=== PATIENT | female | born 1955 | race Caucasian/White ===

== ENCOUNTER 2018-08-24 05:30 | Inpatient (IN) ==
[2018-08-24] MEDS ORDERED: ZOFRAN IV ONE (05:58)
[2018-08-24] MEDS ORDERED: NS 1,000 ML IV ONE ×3 (05:58→08:35)
--- NOTE | 2018-08-24 06:26 | PROVIDER DOCUMENTATION ---
HPI-General Adult - General Chief Complaint: Syncope Stated Complaint: diarrhea Time Seen by Provider: 08/24/18 05:46 Source: patient, EMS Allergies/Adverse Reactions: Patient Allergies Allergy/AdvReac Type Severity Reaction Status Date / Time adhesive tape AdvReac HIVES Verified 07/03/18 13:05 Beta-Blockers AdvReac Unknown Verified 07/03/18 13:05 (Beta-Adrenergic Bloc duloxetine [From Cymbalta] AdvReac HIVES Verified 07/03/18 13:05 iothalamate meglumine AdvReac FLUSHING Verified 07/03/18 13:05 [From Vascoray] iothalamate sodium AdvReac FLUSHING Verified 07/03/18 13:05 [From Vascoray] morphine AdvReac Unknown Verified 07/03/18 13:05 Home Medications: Home Medication List Medication Instructions Recorded Confirmed Last Taken Type Alprazolam [Xanax] 0.5 mg PO DAILY PRN 08/24/18 08/24/18 Unknown History Celecoxib [Celebrex] 200 mg PO BID 08/24/18 08/24/18 08/23/18 History Cyanocobalamin 1,000 mcg IM DIRECTED 08/24/18 08/24/18 Unknown History Desvenlafaxine [Desvenlafaxine ER] 100 mg PO DAILY 08/24/18 08/24/18 08/23/18 History Dorzolamide HCl 1 drp BOTH EYES BID 08/24/18 08/24/18 08/23/18 History Folic Acid 1 mg PO DAILY 08/24/18 08/24/18 08/23/18 History Losartan [Cozaar] 50 mg PO DAILY 08/24/18 08/24/18 08/23/18 History Metformin HCl 1,000 mg PO BID 08/24/18 08/24/18 08/23/18 History Oxcarbazepine [Trileptal] 600 mg PO BID 08/24/18 08/24/18 08/23/18 History Pitavastatin Calcium [Livalo] 2 mg PO DAILY 08/24/18 08/24/18 08/23/18 History Quetiapine [Seroquel] 200 mg PO QHS 08/24/18 08/24/18 08/23/18 History - History of Present Illness -Gen Adult Nature of Presenting Problems: Pt presents s/p syncope, pt has had diarrhea over the last couple of days, tonight felt weak and tired, pt got up to go to the bathroom and syncopized several times, pt was found down on the ground by her , had stool on the ground/lower extremity, pt unsure if she hit her head, pt denies f/c, resendiz, cp, sob, cough, ap, pt reports some dry heaving, pt is lying in bed in no acute distress. Location of Pain/Injury: reports: none Pain Radiation: reports: no radiation Quality of Pain: reports: none Severity: reports: mild Onset/Duration: reports: 2 days ago Timing: reports: still present Context/Activities at Onset: reports: none Modifying Factors: improves with: nothing Associated Symptoms: reports: diarrhea, weakness Similar Symptoms Previously?: No Recently seen or treated by another doctor?: No Review of Systems - Adult - REVIEW OF SYSTEMS - ADULT Constitutional: reports: no symptoms reported Eyes: reports: no symptoms reported Ears, Nose, Mouth & Throat: reports: no symptoms reported Cardiovascular: reports: no symptoms reported Respiratory: reports: no symptoms reported Gastrointestinal: reports: see HPI Genitourinary: reports: no symptoms reported Musculoskeletal: reports: no symptoms reported Integumentary: reports: no symptoms reported Neurological: reports: see HPI Psychiatric: reports: no symptoms reported Endocrine: reports: no symptoms reported Hematologic/Lymphatic: reports: no symptoms reported Allergic/Immunologic: reports: no symptoms reported All Other Systems: Reviewed and Negative Past History - Adult - PAST MEDICAL HISTORY-ADULT Review of Records: reports: Old Records Reviewed, Nursing Assessment Review, Medications Reviewed, Social history reviewed & non-contributory. Major Childhood Illnesses: reports: denies history Gastrointestinal: reports: diverticulosis - PRIOR SURGERIES/PROCEDURES Surgical/Procedure History: reports: none - IMMUNIZATION STATUS Childhood Immunizations: See Nurse Assessment Flu Vaccine: See Nurse Assessment - FAMILY HISTORY Family History: reviewed, not pertinent Physical Exam-General - PHYSICAL EXAM-ADULT Initial Vital Signs Reviewed: Yes - CONSTITUTIONAL General Appearance: appears well, no apparent distress - EYES Eyes: PERRL/EOMI - HEAD, EARS, NOSE, MOUTH & THROAT HENMT: normocephalic/atraumatic - NECK Neck: full range of motion, supple, normal inspection - RESPIRATORY Respiratory: no respiratory distress, no accessory muscle use - CARDIOVASCULAR Cardiovascular: regular rate, rhythm - GASTROINTESTINAL (ABDOMEN) Abdominal Exam: normal bowel sounds, non tender, soft - LYMPHATIC Lymphatic: no adenopathy - MUSCULOSKELETAL Back Exam: normal inspection Extremity: normal range of motion - SKIN Integumentary: normal color - 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 - PSYCHIATRIC Psych/Mental Status: normal mood/affect Progress - PLAN OF CARE/RESULTS Progress/Plan/Lab Results: Vital Signs - 8 hr 08/24/18 06:03 Temperature 98.3 F Pulse Rate 83 Respiratory Rate 14 Blood Pressure 130/76 O2 Sat by Pulse Oximetry 93 L Laboratory Results - last 24 hr 08/24/18 05:55 POC Glucose 168 H Orders Category Date Time Status CT HEAD W/O CONTRAST [CT] Stat Exams 08/24/18 05:58 Ordered cxr [CHEST-1 VIEW] [RAD] Stat Exams 08/24/18 05:57 Ordered CBC WITH ELECTRONIC DIFF [HEME] Stat Lab 08/24/18 06:00 Ordered COMPREHENSIVE METABOLIC PANEL [CHEM] Stat Lab 08/24/18 06:00 Ordered LACTATE, PLASMA [CHEM] Stat Lab 08/24/18 06:00 Ordered LIPASE [CHEM] Stat Lab 08/24/18 06:00 Ordered PRO B-NATRIURETIC PEPTIDE Stat Lab 08/24/18 06:00 Ordered TROPONIN T Stat Lab 08/24/18 06:00 Ordered TSH Stat Lab 08/24/18 06:00 Ordered UA [URINALYSIS] [URINALYSIS] Stat Lab 08/24/18 05:55 Uncollected 0.9% Sodium Chloride Inj [Ns] 1,000 ml Med 08/24/18 05:58 Active IV 999 mls/hr Ondansetron [Zofran] Med 08/24/18 05:58 Discontinued 4 mg IV NOW ONE EKG [EKG] Stat Ther 08/24/18 05:37 Ordered Result Diagrams: 08/24/18 06:00 08/24/18 06:00 - REASSESSMENT Reassessment #1 Time Reassessed: 08:05 Status: improving Reassessment Comment: LOW NA,CL,K, ELEV TSH - CONSULTS/PCP/HOSPITALIST Notification #1 *Consult/PCP/Hospitalist*: MEERA ACCEPTS TO DR LAWRENCE Time Discussed: 08:10 Consult Disposition: Admit - CHANGE OF SHIFT REPORT (ED Provider) 1 Report Given and Care Transferred to:: Dr. Taylor Time of Transfer: 07:00 Items Pending: Labs, Other (Probable admission for syncope) Departure - Departure Date of Disposition Decision: 08/24/18 Time of Disposition Decision: 08:11 DIAGNOSIS: Multiple falls, Diarrhea, Weak, Electrolyte and fluid disorder Disposition: ADMITTED INPATIENT 09 Certified Medical Emergency: Emergent Condition: Stable Referrals and Follow-Ups: Guerrero Forman MD [Primary Care Provider] - - Critical Care Note This patient required my direct & personal management of CC.: No Attestation - Physician/ KELLE Attestation The physician spent face to face time with patient:: Yes Advanced Practice Provider documentation review:: Supervising physician onsite and consulted in the evaluation and care of this patient. The physician did have a face to face encounter with the patient.
[2018-08-24 06:28] LABS: BASO# 0.06 X1000 (0.0-0.2); BASO% 0.7 % (0.0-0.8); EOS# 0.45 X1000 (0.0-0.7); EOS% 5.1 % (0.0-10.0); HEMATOCRIT 40.5 % (37.0-47.0); HEMOGLOBIN 13.5 g/dL (12.0-16.0); IMM GRAN# 0.04 X1000 (0.0-0.04); IMM GRAN% 0.5 % (0.0-0.5); LYMPH# 1.59 X1000 (1.2-3.4); LYMPH% 18.2 % (20.5-51.1); MCH 27.5 PG (27-31); MCHC 33.3 g/dL (33-37); MCV 82.5 FL (81-99); MONO# 0.55 X1000 (0.11-0.59); MONO% 6.3 % (1.7-9.3); MPV 10.3 FL (7.4-10.4); NEUT# 6.07 X1000 (1.4-6.5); NEUT% 69.2 % (42.2-75.2); PLT 267 X1000 (130-400); RBC 4.91 XMIL (4.2-5.4); RDW 14.2 % (11.5-14.5); WBC 8.76 X1000 (4.8-10.8)
[2018-08-24 07:09] LABS: AGAP 24; ALB/GLOB RATIO 1.5; ALBUMIN 4.5 g/dL (3.5-5.0); ALKALINE PHOSPHATASE 74 U/L (32-104); BUN 21 mg/dL (8-22); CALCIUM 10.2 mg/dL (8.8-10.2); CHLORIDE 84 mmol/L (98-107); COSMO 265; CREATININE 1.2 mg/dL (0.5-0.9); ESTIMATED GFR 46; GLUCOSE 155 mg/dL (70-104); GOT 40 U/L (10-30); GPT 66 U/L (10-36); LIPASE 33 U/L (13-60); POTASSIUM 3.3 mmol/L (3.5-5.1); SODIUM 129 mmol/L (136-145); TCO2 21 mmol/L (25-35); TOTAL BILIRUBIN < 0.15 mg/dL (0.20-1.00); TOTAL PROTEIN 7.5 g/dL (6.3-8.3)
[2018-08-24 07:11] LABS: URINE SOURCE CATH
[2018-08-24 07:14] LABS: BILIRUBIN URINE NEGATIVE (NEGATIVE); BLOOD URINE NEGATIVE (NEGATIVE); COLOR YELLOW; GLUCOSE URINE NEGATIVE (NEGATIVE); KETONE URINE 10 mg/dL (NEGATIVE); LEUKOCYTES URINE NEGATIVE (NEGATIVE); NITRITE URINE NEGATIVE (NEGATIVE); PH URINE 5.5; PROTEIN URINE 30 mg/dL (NEGATIVE); SP GRAVITY URINE 1.012; TURBIDITY URINE HAZY (CLEAR); UROBILINOGEN URINE NORMAL (NORMAL)
[2018-08-24 07:15] LABS: UR EPITHELIAL CELLS <10 /HPF (<10); URINE BACTERIA NEGATIVE /HPF; URINE RBC <10 /HPF (<10); URINE WBC <10 /HPF (<10)
--- NOTE | 2018-08-24 07:21 | Diag Imaging Result Doc PS360 ---
EXAM: CHEST-1 VIEW INDICATION: ams TECHNIQUE: One view COMPARISON: None. FINDINGS: The lungs are grossly clear. There is no discrete pleural fluid collection or pneumothorax. The cardiomediastinal silhouette and central vasculature are grossly unremarkable. IMPRESSION: No evidence of acute pathology by plain radiograph. Electronically signed by Cristino Valdivia 08/24/2018 7:19 AM
[2018-08-24 07:30] LABS: URINE CASTS NONE SEEN
--- NOTE | 2018-08-24 07:49 | Diag Imaging Result Doc PS360 ---
EXAM: CT HEAD W/O CONTRAST 08/24/2018 HISTORY: ams, syncope TECHNIQUE: This exam was performed using automated exposure control, adjustment of mA or kV according to patient size, and/or use of iterative reconstruction technique. COMMENT: There is no evidence of mass effect, bleed, abnormal extra-axial fluid collection, or hydrocephalus. There are calcifications in the internal carotid arteries bilaterally. The calvarium is intact. The paranasal sinuses are clear. IMPRESSION: No evidence of acute intracranial disease. Electronically signed by Adrián Rawls 08/24/2018 7:46 AM
[2018-08-24] MEDS ORDERED: POTASSIUM CHLORIDE 40 MEQ/SWI 40 MEQ/100 ML IVPB IV ONE (07:58)
[2018-08-24] MEDS ORDERED: NS 500 ML ONE (08:09)
[2018-08-24] MEDS ORDERED: ZOFRAN IV PRN (08:17)
[2018-08-24] MEDS: NS 1,000 ML IV SCH ×3 (08:17→22:01)
--- NOTE | 2018-08-24 08:18 | EKG Report ---
Test Performed on : 08/24/2018 05:48:12 AM Test Reason : syncope Blood Pressure : / mmHG Vent. Rate : 083 BPM Atrial Rate : 083 BPM P-R Int : 172 ms QRS Dur : 098 ms QT Int : 400 ms P-R-T Axes : 000 155 165 degrees QTc Int : 470 ms Normal sinus rhythm. Right axis deviation Cannot rule out Anterior infarct , age undetermined Abnormal ECG No previous ECGs available Unconfirmed Result
[2018-08-24] MEDS ORDERED: XANAX PO PRN (08:20)
--- NOTE | 2018-08-24 08:53 | Diag Imaging Result Doc PS360 ---
EXAM: ABDOMEN FLAT/UPRIGHT INDICATION: diarrhea TECHNIQUE: 2 views COMPARISON: None. FINDINGS: There are unremarkable bowel gas and stool patterns. There is no obstructive bowel pattern. There is no evidence of large volume free abdominal gas. There is no evidence of organomegaly. IMPRESSION: No evidence of acute pathology by plain radiograph. Electronically signed by Cristino Valdivia 08/24/2018 8:51 AM
[2018-08-24] MEDS ORDERED: LIVALO PO SCH (09:00)
[2018-08-24] MEDS ORDERED: SODIUM CHLORIDE 0.9% INJ ONE (09:42)
[2018-08-24] MEDS ORDERED: SYNTHROID IV ONE (09:42)
[2018-08-24] MEDS ORDERED: IMODIUM PO PRN (10:22)
[2018-08-24] MEDS ORDERED: HUMULIN R SUBQ SCH (11:00)
--- NOTE | 2018-08-24 11:33 | HISTORY AND PHYSICAL ---
PRIMARY CARE PROVIDER: Dr. Guerrero Forman. CHIEF COMPLAINT: Diarrhea and passing out. HISTORY OF PRESENT ILLNESS: Ms. Chiara Bryan is a 62-year-old female with a medical history of obstructive sleep apnea on CPAP, hypertension, Mnire's disease and has to use a cane for that due to balance issues, bipolar disorder, asthma, who presents with complaints of 3-4 days of diarrhea, usually able to make it to the restroom. No changes in her diet. Still has an appetite. Only had some dry heaving this morning but throughout the night she had several episodes of waking up in the floor, waking next to the bed, waking up in the floor next to the bathroom, and then the last time her found her passed out on the floor with incontinent stool. Head CT was performed due to the falls and unknowing if she had hit her head, and it was negative. Her CBC is unremarkable. Her electrolytes are consistent with severe dehydration. She denies being around anyone else that has had a gastroenteritis, but we will order some stools studies. She has had a TSH, T4, which shows hypothyroidism, this is a new diagnosis. She does state that over the last week she has been having some lightheaded spells, her bowel movements normally have been around 5 or 6 or more per day. Denies any abdominal pain and with assessment there is no abdominal pain on palpation. Abdominal x-ray is negative, so we will transfer her to [facility] and continue with IV fluid hydration. PAST MEDICAL HISTORY: 1. Diabetes mellitus type 2. 2. New diagnosis of hypothyroidism on this admit. 3. Obstructive sleep apnea, uses CPAP. 4. Bipolar disorder. 5. Hypertension. 6. Arthritis. 7. Meniere's disease that causes balance issues and she uses a cane at home. 8. Glaucoma. 9. Hyperlipidemia. 10.Obesity with a BMI of 37.4. 11.Pulmonary emboli and multiple bilateral lower extremity DVTs back in the year 1999 after she had her cholecystectomy. PAST SURGICAL HISTORY: Left wrist surgery, bilateral ear surgery, polyps removed off her bladder, 3 sections, pilonidal cyst at the base of her spine removed, cholecystectomy, bilateral cataracts, and she has had laser surgery of her eyes, and a stent placed for an obstructive tear duct which has since been removed. SOCIAL HISTORY: Denies tobacco, alcohol, or illicit drug use. She has been to her for 16 years I believe sine 2002. She is on Disability. She has 3 adult children. 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 FAMILY HISTORY: Mother diabetes and myocardial infarction. Father had coronary artery disease and had to have 4 coronary artery bypass grafting twice, Alzheimer's, and diabetes. ALLERGIES: Beta-britt causes an acute asthma exacerbation. IV push dye causes anaphylaxis, and tape causes blisters. HOME MEDICATIONS: 1. Seroquel 200 mg p.o. nightly. 2. Celebrex 200 mg p.o. twice daily. 3. Cozaar 50 mg p.o. daily. 4. Cyanocobalamin 1000 mcg IM. 5. Desvenlafaxine extended release 100 mg p.o. daily. 6. Dorzolamide HCL both eyes 1 drop twice a day. 7. Folic acid 1 mg p.o. daily. 8. Pitavastatin calcium 2 mg p.o. daily. 9. Metformin HCL 1000 mg p.o. twice daily. 10.Trileptal 600 mg p.o. twice daily. 11.Xanax 0.5 mg p.o. daily p.r.n. REVIEW OF SYSTEMS: A 14-point review of systems are complete and all were negative except those mentioned above in the HPI. She does state that she was confused and does not remember a lot about coming in but that her head is starting to clear. Denies headache. PHYSICAL EXAMINATION: VITAL SIGNS: Temperature 98.3, heart rate 93, respiratory rate 16, blood pressure 130/60, O2 saturation 94% on room air, 5 feet 5 inches tall, 225 pounds. GENERAL: Ms. Chiara Bryan is a 62-year-old female. She is in no acute distress. She is able to answer questions appropriately. HEENT: Atraumatic, normocephalic. Pupils equal, round, and reactive to light. Extraocular movements intact. Mucous membranes are dry. Facial skin is a little red in color or pinkish. NECK: Trachea midline. CARDIOVASCULAR: S1, S2, regular rate and rhythm. No rubs, gallops, or murmurs. No lower extremity edema, +2 dorsalis and radial pulses. Negative JVD or carotid bruits. PULMONARY: Clear to auscultate, bilateral breath sounds. No accessory muscle use or work of breathing noted. GASTROINTESTINAL: Soft, nontender, nondistended, positive bowel sounds x4. EXTREMITIES: Moves all extremities equally, full range of motion. NEUROLOGIC: A and O x3, follows commands. Sensory is intact. SKIN: Warm, dry, intact. LABORATORY DATA: White blood cells 8000, hemoglobin 13, hematocrit 40, platelet count 267. Sodium 129, potassium 3.3, BUN 21, creatinine is 1.2, glucose 155, calcium is 10.2, bilirubin is less than 0.15, AST 40, ALT 66. Troponin less than 0.01. ProBNP 95. Albumin is 4.5, lipase 33, serum lactate 5.3. TSH is 6.64, free T4 is 0.74. Urinalysis: 30 protein, 10 ketones. IMAGING: Chest x-ray negative of acute findings. Abdominal x-ray no acute finding. Head CT no acute finding. EKG normal sinus rhythm, rate 83, QTc 470. ASSESSMENT AND PLAN: 1. Intractable diarrhea likely viral gastroenteritis. White count is normal. Having mostly severe diarrhea. Dry heave today, but no other nausea. She has been eating normal over the last few days despite having the diarrhea for 4 days in a row. She never tried anything to slow the diarrhea down, so we will order Imodium and we have ordered stool studies. 2. Syncope secondary to severe dehydration due to diarrhea. She had some passed out spells throughout the night and all of her electrolytes are consistent with dehydration and diarrhea. She has got a low potassium level, her sodium is low, so we will replace, IV hydration. 3. Hypokalemia secondary to gastrointestinal loss. She is getting 40 p.o. IV. 4. History of Meniere's disease, has to use a cane due to balance issues, and this probably did not help with her dehydration, which added to the syncopal or the passed out spells. She may have lost her balance. 5. Hypertension, stable. Continue home medications. 6. Obstructive sleep apnea. She can continue her CPAP. 7. Diabetes mellitus type 2. Will do pattern blood glucose, sliding scale insulin, and hold her metformin for now until she is able to eat well. 8. Bipolar disorder with major depressive disorder. Continue home medications. 9. Hyperlipidemia. Continue her statin. 10.Glaucoma. Continue home eyedrops. 11.History of asthma. No exacerbation. Saturations are like 93 and 94 on room air. 12.History of bilateral lower extremity deep venous thromboses and pulmonary embolus in the year 1999, currently no anticoagulation. This was 19 years ago. 13.Deep venous thrombosis prophylaxis, sequential compression devices. 14.Acute kidney injury but only secondary to dehydration and will improve with IV fluids. We will check a creatinine in the morning. Dictated by JOSE Peña for Dudley Cerda MD Addendum: Patient seen and examined by myself. Agree with JOSE note. It reflects my assessment and plan. Patient is being admitted to hospital for persistent diarrhea secondary to gastroenteritis so will start aggressive fluid resuscitation, replenish potassium and sliding scale insulin as well for diabetes. cc: JOSE Peña MD Brian R. James, MD MTDD
--- NOTE | 2018-08-24 11:34 | EKG Report ---
Test Performed on : 08/24/2018 09:13:10 AM Test Reason : ED. NO EKG ORDER FOR MUSE Blood Pressure : / mmHG Vent. Rate : 086 BPM Atrial Rate : 086 BPM P-R Int : 186 ms QRS Dur : 088 ms QT Int : 380 ms P-R-T Axes : 047 032 041 degrees QTc Int : 454 ms Normal sinus rhythm. Normal ECG When compared with ECG of 24-AUG-2018 05:48, (Unconfirmed) QRS axis shifted left T wave inversion no longer evident in Lateral leads Unconfirmed Result
[2018-08-24] MEDS: TRUSOPT 2% OPH SOLN BOTH EYES SCH ×2 (11:50→21:59)
[2018-08-24] MEDS: PRISTIQ ER PO SCH (11:51)
[2018-08-24] MEDS: COZAAR PO SCH (11:52)
[2018-08-24] MEDS: CELEBREX PO SCH ×2 (11:52→21:55)
[2018-08-24] MEDS: TRILEPTAL PO SCH ×2 (11:52→21:55)
[2018-08-24] MEDS: FOLIC ACID PO SCH (11:52)
[2018-08-24] MEDS: PRILOSEC PO SCH ×3 (12:00→21:55)
[2018-08-24] MEDS: TYLENOL PO PRN ×2 (15:56→21:56)
[2018-08-24] MEDS: HUMULIN R (PARKWAY) SUBQ SCH ×2 (17:19→22:05)
[2018-08-24 18:34] LABS: UR AMPHETAMINES QUAL NONE DETECTED (NONE DETECT); UR BARBITUATES QUAL NONE DETECTED (NONE DETECT); UR BENZODIAZEPIN QUAL NONE DETECTED (NONE DETECT); UR CANNABINOIDS QUAL NONE DETECTED (NONE DETECT); UR COCAINE QUAL NONE DETECTED (NONE DETECT); UR METHADONE QUAL NONE DETECTED (NONE DETECT); UR METHAMPHETAMINE QUAL NONE DETECTED (NONE DETECT); UR OPIATES QUAL NONE DETECTED (NONE DETECT); UR OXYCODONE QUAL NONE DETECTED (NONE DETECT); UR PCP QUAL NONE DETECTED (NONE DETECT); UR PROPOXYPHENE QUAL NONE DETECTED (NONE DETECT); UR TCA QUAL PRESUMPTIVE POSITIVE (NONE DETECT)
[2018-08-24] MEDS: SEROQUEL PO SCH (21:55)
[2018-08-24] MEDS: LIVALO PO SCH (21:56)
[2018-08-25] MEDS: NS 1,000 ML IV SCH ×3 (04:50→20:48)
[2018-08-25] MEDS: TYLENOL PO PRN ×2 (06:30→19:34)
[2018-08-25] MEDS: HUMULIN R (PARKWAY) SUBQ SCH ×4 (06:33→21:53)
[2018-08-25] MEDS: SYNTHROID PO SCH (06:34)
[2018-08-25 07:09] LABS: BASO# 0.06 X1000 (0.0-0.2); BASO% 1.1 % (0.0-0.8); EOS# 0.49 X1000 (0.0-0.7); EOS% 9.4 % (0.0-10.0); HEMATOCRIT 35.4 % (37.0-47.0); HEMOGLOBIN 11.7 g/dL (12.0-16.0); IMM GRAN# 0.02 X1000 (0.0-0.04); IMM GRAN% 0.4 % (0.0-0.5); LYMPH# 1.41 X1000 (1.2-3.4); LYMPH% 26.9 % (20.5-51.1); MCHC 33.1 g/dL (33-37); MCV 81.6 FL (81-99); MONO% 7.6 % (1.7-9.3); NEUT# 2.86 X1000 (1.4-6.5); NEUT% 54.6 % (42.2-75.2); PLT 235 X1000 (130-400); RBC 4.34 XMIL (4.2-5.4); RDW 14.1 % (11.5-14.5); WBC 5.24 X1000 (4.8-10.8)
[2018-08-25 07:24] LABS: AGAP 13; ALBUMIN 3.8 g/dL (3.5-5.0); ALKALINE PHOSPHATASE 68 U/L (32-104); BUN 7 mg/dL (8-22); CALCIUM 8.4 mg/dL (8.8-10.2); CHLORIDE 91 mmol/L (98-107); COSMO 258; CREATININE 0.4 mg/dL (0.5-0.9); ESTIMATED GFR > 60; GLUCOSE 119 mg/dL (70-104); GOT 33 U/L (10-30); GPT 50 U/L (10-36); MAGNESIUM 1.5 mg/dL (1.5-2.7); SODIUM 129 mmol/L (136-145); TCO2 25 mmol/L (25-35); TOTAL PROTEIN 6.3 g/dL (6.3-8.3)
[2018-08-25 07:33] LABS: INR 1.02; PROTIME 13.9 Seconds (11.0-16.0); PTT 28.6 Seconds (22.3-41.8)
[2018-08-25] MEDS: PRILOSEC PO SCH ×3 (09:09→20:16)
[2018-08-25] MEDS: PRISTIQ ER PO SCH (09:09)
[2018-08-25] MEDS: COZAAR PO SCH (09:09)
[2018-08-25] MEDS: CELEBREX PO SCH ×3 (09:09→20:16)
[2018-08-25] MEDS: TRUSOPT 2% OPH SOLN BOTH EYES SCH ×3 (09:10→20:17)
[2018-08-25] MEDS: TRILEPTAL PO SCH ×3 (09:10→20:17)
[2018-08-25] MEDS: FOLIC ACID PO SCH (09:10)
[2018-08-25 16:11] LABS: C DIFF TOXIN PL NEGATIVE (NEGATIVE)
[2018-08-25] MEDS ORDERED: NS 1,000 ML IV ONE (17:48)
--- NOTE | 2018-08-25 18:21 | PROGRESS NOTE ---
DATE: 08/25/2018 SUBJECTIVE: Patient has no major complaints. OBJECTIVE: Vital Signs: Blood pressure is 128/71, heart rate 92, respiratory rate 18, temperature 98.1. Cardiovascular: Regular rate and rhythm. Pulmonary: Bilateral breath sounds, clear to auscultation. GI: Was soft, nontender, nondistended. Bowel sounds are positive. Extremity: Exam. No clubbing or cyanosis. Lymphatic exam: No peripheral edema. Neurological: Nonfocal. LABORATORY DATA: White count is 5, hemoglobin and hematocrit is 11 and 35, platelets 235. Sodium still 129. AST and ALT are 33 and 50 respectively. Clostridium difficile was negative. I think the rest of her stool tests have been negative. I do not have any of them back yet. PROBLEM LIST: 1. Gastroenteritis, most likely viral. Overall improving. I am going to advance her diet and follow closely. 2. Syncope, likely due to dehydration. There are some reports there that patient had possible atrial fibrillation. I do not know this. The mentioned that, but I do not clearly have any atrial fibrillation documented anywhere. I am not sure who said they had atrial fibrillation. None of the EKGs reveal that, so I am not sure how that. It is not in her history and physical. I am not sure if there would be anything from that standpoint. 3. Hypothyroidism. We will continue treatment. She is hypothyroid, which may have contributed to her overall problems. 4. Hyponatremia, unclear per se what may be contributing to that. We will check urine osmolarity, urine sodium, and continue hydration and follow. DISPOSITION: Pending her clinical status, I was hoping to get her out today, but with her sodium still being low and she is still being weak, we are going to wait another, a little bit longer. cc: Mayur Martin MD
[2018-08-25] MEDS: LIVALO PO SCH ×2 (19:33→20:16)
[2018-08-25] MEDS: SEROQUEL PO SCH ×2 (19:34→20:17)
[2018-08-26] MEDS: TYLENOL PO PRN ×2 (04:06→09:43)
[2018-08-26] MEDS: NS 1,000 ML IV SCH (04:08)
[2018-08-26] MEDS: SYNTHROID PO SCH (06:44)
[2018-08-26] MEDS: HUMULIN R (PARKWAY) SUBQ SCH (06:44)
[2018-08-26 07:50] LABS: BASO# 0.07 X1000 (0.0-0.2); BASO% 1.3 % (0.0-0.8); EOS# 0.48 X1000 (0.0-0.7); EOS% 8.8 % (0.0-10.0); HEMOGLOBIN 11.2 g/dL (12.0-16.0); IMM GRAN# 0.01 X1000 (0.0-0.04); IMM GRAN% 0.2 % (0.0-0.5); LYMPH# 1.21 X1000 (1.2-3.4); LYMPH% 22.2 % (20.5-51.1); MCH 27.1 PG (27-31); MCHC 32.9 g/dL (33-37); MCV 82.3 FL (81-99); MONO# 0.48 X1000 (0.11-0.59); MONO% 8.8 % (1.7-9.3); MPV 10.2 FL (7.4-10.4); NEUT# 3.21 X1000 (1.4-6.5); NEUT% 58.7 % (42.2-75.2); PLT 211 X1000 (130-400); RBC 4.13 XMIL (4.2-5.4); RDW 14.2 % (11.5-14.5); WBC 5.46 X1000 (4.8-10.8)
[2018-08-26 07:56] LABS: AGAP 12; BUN 4 mg/dL (8-22); CALCIUM 8.4 mg/dL (8.8-10.2); CHLORIDE 92 mmol/L (98-107); COSMO 257; CREATININE 0.4 mg/dL (0.5-0.9); ESTIMATED GFR > 60; GLUCOSE 119 mg/dL (70-104); POTASSIUM 3.8 mmol/L (3.5-5.1); SODIUM 129 mmol/L (136-145); TCO2 25 mmol/L (25-35)
[2018-08-26] MEDS: CELEBREX PO SCH (08:18)
[2018-08-26] MEDS: TRUSOPT 2% OPH SOLN BOTH EYES SCH (08:18)
[2018-08-26] MEDS: TRILEPTAL PO SCH (08:18)
[2018-08-26] MEDS: PRISTIQ ER PO SCH (08:18)
[2018-08-26] MEDS: PRILOSEC PO SCH (08:18)
[2018-08-26] MEDS: FOLIC ACID PO SCH (08:18)
[2018-08-26] MEDS: COZAAR PO SCH (08:19)
[2018-08-26 08:20] LABS: HEMOGLOBIN A1C 5.8 % (4.8-6.0)
[2018-08-26 08:43] VITALS: BP 154/64
[2018-08-26] MEDS ORDERED: FLONASE NAS SCH (09:15)
--- NOTE | 2018-08-26 13:24 | DISCHARGE SUMMARY ---
ADMISSION DATE: 08/24/2018 DISCHARGE DATE: 08/26/2018 DISCHARGE DIAGNOSIS: 1. Syncope secondary to dehydration that is secondary to viral gastroenteritis, which has now resolved. 2. Borderline hypothyroidism. 3. Hyponatremia, that has been stable. 4. History of type 2 diabetes mellitus. 5. Hypertension. 6. Dyslipidemia. HOSPITAL COURSE: Ms. Bryan is a 62-year-old female who was admitted to the hospital after 3 to 4 days history of diarrhea and was feeling very dizzy. She was noted to have dehydration and therefore, she was admitted to the hospital for IV hydration. Her dizziness improved with IV hydration. Her diarrhea has also resolved. She had borderline hypothyroidism for which she was started on levothyroxine 25 mcg orally once daily. She will followup on that with her PCP as outpatient. She has been having borderline hyponatremia with sodium levels of 129, which have remained stable throughout this hospital admission. I believe that is because of her psychiatric medications. Since patient's condition has been clinically stable and she feels much better, she is going to be discharged home today. DISCHARGE MEDICATIONS: 1. Seroquel 200 mg orally once daily at bedtime. 2. Metformin 1000 mg orally twice daily. 3. Livalo 2 mg orally once daily at bedtime. 4. Trileptal 600 mg orally twice daily. 5. Losartan 50 mg orally once daily. 6. Folic acid 1 mg orally once daily. 7. Pristiq 100 mg orally once daily. 8. Vitamin B12 1000 mcg intramuscular injections once a month. 9. Alprazolam 0.5 mg orally once daily as needed for anxiety. 10. Celebrex 200 mg orally twice daily as needed for arthritis. 11. Levothyroxine 25 mcg orally once daily. FOLLOWUP: She will follow up with Dr. Forman in approximately 1 to 2 weeks. CONDITION: Stable. DISPOSITION: Home. cc: MD Guerrero Herman MD
[2018-09-12] MEDS ORDERED: CYANOCOBALAMIN IM SCH (09:00)
== END 2018-08-26 12:05 | disposition home or self-care (01) | DRG 641 ==
LOC: SUPCPDRO → ED 05:30 → EDIPHOLD 09:03 → SUATTDRO 09:03 → P.MEDSURG 09:53
PROVIDERS: ATTEND Internal Medicine
CPT/HCPCS: 70450; 71010; 71045; 74019; 74020; 80048; 80053; 80104; 80301; 80305; 81001; 82948; 83036; 83605; 83690; 83735; 83880; 83935; 84300; 84439; 84443; 84484; 85025; 85610; 85730; 87045; 87046; 87177; 87205; 87324; 87427; 87449; 87798; 88313; 89055; 93005; 94761; 94799; 96361; 96365; 96366; 96375; 99285; A9270; G0431; G0434; G0477; J2405; J3480; J7030; J7040; XXXXX